=== PATIENT | male | born 1980 | race Hispanic/Latino ===

== ENCOUNTER 2023-09-28 12:36 | Emergency (ER) | payer SELFPAY ==
[2023-09-28 14:11] LABS: #Basophils 0.1 10x3/uL (0.0-0.2); #Eosinphils 0.1 10x3/uL (0.0-0.5); #Monocytes 0.5 10x3/uL (0.0-1.1); #Neutrophils 3.5 10x3/uL (1.5-8.4); %Basophils 1.5 % (0.0-2.0); %Eosinophils 2.3 % (0.0-6.0); %Lymphocytes 31.1 % (18.0-47.0); %Monocytes 7.5 % (0.0-10.0); %Neutrophils 57.4 % (40.0-75.0); Hematocrit 30.8 % (38.8-50.0); Mean Corpuscular HGB CONC 29.2 g/dL (32.0-36.0); Mean Corpuscular Hemoglobin 21.1 pg (27.0-33.0); Mean Corpuscular Volume 72.3 fl (81.2-95.1); Mean Platelet Volume 9.2 fl (7.4-10.4); Platelet Count 117 10x3/uL (150-450); RBC Distribution Width 22.3 % (11.5-14.5); Red Blood Cell (RBC) Count 4.26 10x6/uL (4.32-5.72); White Blood Cell (WBC) Count 6.1 10x3/uL (3.5-10.5)
[2023-09-28 14:28] LABS: ALT (SGPT) 48 U/L (8-55); AST (SGOT) 66 U/L (5-34); Albumin 3.1 g/dL (3.5-5.0); Alkaline Phosphatase 178 U/L (40-110); Anion Gap 11 mmol/L (10-20); BUN (Urea Nitrogen) Less than 4 mg/dL (8.9-20.6); Bilirubin, Total 2.3 mg/dL (0.2-1.2); Calc. Creatinine Clearance 0 mL/min (70-130); Calcium 8.3 mg/dL (7.8-10.44); Carbon Dioxide 21 mmol/L (22-29); Chloride 109 mmol/L (98-107); Estimated GFR 121; Globulin 5.2 g/dL (2.4-3.5); Glucose 126 mg/dL (70-105); Potassium 2.9 mmol/L (3.5-5.1); Protein, Total 8.3 g/dL (6.0-8.3); Sodium 138 mmol/L (136-145)
[2023-09-28 16:58] LABS: Anisocytosis SLIGHT = 6-15 cells (100X) (0-5/hpf); Hypochromia MODERATE=16-30 cells (100X) (0-5/hpf); Microcytosis SLIGHT = 6-15 cells (100X) (0-5/hpf); Poikilocytosis SLIGHT = 6-15 cells (100X) (0-5/hpf)
[2023-09-28 16:59] LABS: Target Cells SLIGHT = 2-5 cells (100X) (0-1/hpf)
[2023-09-28 17:00] LABS: Bite Cells SLIGHT = 2-5 cells (100X) (0-1/hpf); Ovalocytes SLIGHT = 2-5 cells (100X) (0-1/hpf); Platelet Adequacy Comment Appears Decreased
== END 2023-09-28 16:17 | disposition home or self-care (01) ==
LOC: CSHERS 12:36
DX: K42.9 Umbilical hernia without obstruction or gangrene (principal); D64.9 Anemia, unspecified; E87.6 Hypokalemia; F17.210 Nicotine dependence, cigarettes, uncomplicated; Z55.6 Problems related to health literacy
CPT/HCPCS: 71045; 80053; 83605; 85025; 93005